=== PATIENT | female | born 1950 | race Caucasian/White ===

== ENCOUNTER 2017-03-25 06:00 | Inpatient (IN) ==
[2017-03-14 13:43] LABS: Basophils % 0.4 % (0.0-0.8); Eosinophils # 0.1 10*3/uL (0.0-0.87); Hematocrit 41.4 VOL% (35.7-47.0); Hemoglobin 13.8 GM/DL (12.0-16.0); Immature Granulocytes % 0.4 %; Immature Granulocytes Absolute 0.02 #; Lymphocytes % 19.5 % (21.3-54.2); Mean Corpuscular HGB Conc 33.3 GM/DL (32-36); Mean Corpuscular Hemoglobin 31 PG (27-34); Mean Corpuscular Volume 92.8 FL (87-102); Mean Platelet Volume 10.7 FL (9.6-12.0); Monocytes # 0.9 10*3/uL (0.11-0.8); Monocytes % 18.2 % (1.7-12.7); Neutrophils # 3.1 10*3/uL (1.4-7.4); Neutrophils % 59.5 % (38.7-73.9); Platelet Count 207 T/CUMM (130-400); Red Blood Count 4.46 MC/CUMM (3.8-5.5); Red Cell Distribution Width 12.7 % (9.3-17.3); White Blood Count 5.1 T/CUMM (4-12)
[2017-03-14 14:07] LABS: INR 0.9; PT Patient Result 9.6 SECS; Partial Thromboplastin Time 26.4 SECS (0-40)
[2017-03-14 14:08] LABS: Albumin 3.8 G/DL (3.4-5.0); Bilirubin,Total 0.4 MG/DL (0.2-1.0); Calcium 8.8 MG/DL (8.5-10.1); Osmolality,Calculated 277.7 MOS/KG (273-304); Total Protein 6.8 G/DL (6.4-8.3)
[2017-03-14 14:12] LABS: Apearance,Urine Slightly Hazy (Clear); Bacteria,Urine Occasional /HPF (Few); Bilirubin,Urine Negative (Negative); Blood, Urine Negative (Negative); Glucose,Urine (UA) Negative (Negative); Ketones,Urine Negative (Negative); Mucus,Urine Occasional /LPF (Occasional); Nitrite,Urine Negative (Negative); Protein,Urine Negative; RBC,Urine 1 /HPF (0-4); Squamous Epithelial Cell,Urine Occasional /HPF (0-10); Urine Color Yellow (Yellow); Urine Specific Gravity 1.014 (1.001-1.035); Urine Urobilinogen < 2.0 EU/DL (0.2-1.0); WBC,Urine <1 /HPF (0-6)
[2017-03-14 14:21] LABS: Band Neutrophils 1 % (0-10); Eosinophils 4 % (0-10); Lymphocytes 15 % (20-55); Platelet Estimate Normal; Segmented Neutrophils 70 % (50-85); Total Cells Counted 100
[~2017-03-25 06:00] MED LIST: VANCOMYCIN INJ 1,000 MG in SODIUM CHLORIDE 0.9% 250 ML IV ONE; ceFAZolin 1,000 MG in SYRINGE 1 EACH IV ONE
[2017-03-25] MEDS ORDERED: VANCOMYCIN 1,000 MG VIAL ONE (06:27)
[2017-03-25] MEDS ORDERED: ceFAZolin 1,000 MG VIAL ONE (06:28)
[2017-03-25] MEDS ORDERED: TRANEXAMIC ACID 1,000 MG/10 ML VIAL IV ONE (06:32)
[2017-03-25] MEDS ORDERED: ROPIVACAINE 0.5% 30 ML VIAL ONE (06:36)
[2017-03-25] MEDS ORDERED: BACITRACIN OINT 0.9 GM PACK TOP ONE (06:41)
[2017-03-25] MEDS ORDERED: BUPIVACAINE 0.5% 50 ML VIAL ONE (06:41)
[2017-03-25] MEDS ORDERED: BETAMETH SODIUM PHOS/ACETATE 30 MG/5 ML VIAL ONE (06:42)
[2017-03-25] MEDS: LACTATED RINGERS 1,000 ML IV SCH ×5 (06:49→17:59)
[2017-03-25] MEDS ORDERED: MORPHINE 2 MG/1 ML SYRINGE IV PRN ×2 (07:29)
[2017-03-25] MEDS ORDERED: ZALEPLON 5 MG CAPSULE PO PRN (07:29)
[2017-03-25] MEDS ORDERED: MAGNESIUM HYDROXIDE SUSP 30 ML UDCUP PO PRN (07:29)
[2017-03-25] MEDS ORDERED: oxyCODONE IR 5 MG TABLET PO PRN (07:29)
[2017-03-25] MEDS ORDERED: diphenhydrAMINE CAP 25 MG CAPSULE PO PRN (07:29)
[2017-03-25] MEDS ORDERED: ONDANSETRON 4 MG/2 ML VIAL IV PRN (07:29)
[2017-03-25] MEDS ORDERED: KETOROLAC 30 MG/1 ML VIAL IV SCH (07:30)
[2017-03-25] MEDS ORDERED: BIOTIN 800 MCG PO SCH (09:00)
[2017-03-25] MEDS ORDERED: fentaNYL 100 MCG/2 ML VIAL ONE (09:06)
[2017-03-25] MEDS ORDERED: PROPOFOL 200 MG/20 ML VIAL IV ONE (09:06)
[2017-03-25] MEDS ORDERED: LACTATED RINGERS 1,000 ML IV ONE (09:07)
[2017-03-25] MEDS ORDERED: MIDAZOLAM 2 MG/2 ML VIAL ONE (09:07)
[2017-03-25] MEDS ORDERED: ONDANSETRON 4 MG/2 ML VIAL ONE (09:07)
[2017-03-25] MEDS ORDERED: PROPOFOL 500 MG/50 ML BOTTLE IV ONE (09:07)
[2017-03-25] MEDS ORDERED: SODIUM CHLORIDE 0.9% 100 ML IV ONE (09:07)
[2017-03-25] MEDS: CALCIUM (CARBONATE)/VITAMIN D 600 MG-400 UNIT TABLET PO SCH ×2 (10:29→21:06)
[2017-03-25] MEDS: TRIAMTERENE/HCTZ 37.5-25 MG CAPSULE PO SCH (10:30)
[2017-03-25] MEDS: ATORVASTATIN 20 MG TABLET PO SCH (10:30)
[2017-03-25] MEDS: PANTOPRAZOLE 40 MG TABLET PO SCH (10:30)
[2017-03-25] MEDS: DOCUSATE SODIUM 100 MG CAPSULE PO SCH ×2 (10:30→21:06)
[2017-03-25] MEDS: FLUTICASONE 50 MCG NASAL SPRAY 16 GM BOTTLE BOTH NARES SCH ×2 (10:30→21:07)
[2017-03-25] MEDS: CETIRIZINE 10 MG TABLET PO SCH (10:30)
[2017-03-25] MEDS: MULTIVITAMIN (CENTRUM) TABLET PO SCH (10:30)
[2017-03-25] MEDS: CARVEDILOL 6.25 MG TABLET PO SCH ×2 (10:30→21:06)
[2017-03-25] MEDS: KETOROLAC 30 MG/1 ML VIAL IV SCH ×3 (11:17→23:25)
[2017-03-25] MEDS: ACETAMINOPHEN 500 MG TABLET PO SCH ×3 (11:17→23:25)
[2017-03-25] MEDS: ceFAZolin 1,000 MG in SYRINGE 1 EACH IV SCH ×2 (11:18→21:06)
[2017-03-25] MEDS: oxyCODONE IR 5 MG TABLET PO PRN ×3 (14:11→23:25)
[2017-03-26] MEDS: LACTATED RINGERS 1,000 ML IV SCH ×2 (00:22→04:31)
[2017-03-26] MEDS: FONDAPARINUX 2.5 MG/0.5 ML SYRINGE SUBCUT SCH (05:25)
[2017-03-26] MEDS: ACETAMINOPHEN 500 MG TABLET PO SCH (05:25)
[2017-03-26] MEDS: KETOROLAC 30 MG/1 ML VIAL IV SCH (05:25)
[2017-03-26 06:09] LABS: Basophils % 0.2 % (0.0-0.8); Hematocrit 33.2 VOL% (35.7-47.0); Hemoglobin 11.3 GM/DL (12.0-16.0); Immature Granulocytes % 0.6 %; Immature Granulocytes Absolute 0.08 #; Lymphocytes # 0.8 10*3/uL (1.4-4.0); Mean Corpuscular Hemoglobin 31 PG (27-34); Mean Corpuscular Volume 90.2 FL (87-102); Mean Platelet Volume 10.8 FL (9.6-12.0); Monocytes # 1.1 10*3/uL (0.11-0.8); Monocytes % 8.5 % (1.7-12.7); Neutrophils # 10.8 10*3/uL (1.4-7.4); Neutrophils % 84.7 % (38.7-73.9); Platelet Count 205 T/CUMM (130-400); Red Blood Count 3.68 MC/CUMM (3.8-5.5); White Blood Count 12.7 T/CUMM (4-12)
[2017-03-26 06:51] LABS: Calcium 9.3 MG/DL (8.5-10.1); Osmolality,Calculated 285.1 MOS/KG (273-304); Potassium 3.4 MMOL/L (3.5-5.1)
[2017-03-26] MEDS: TRIAMTERENE/HCTZ 37.5-25 MG CAPSULE PO SCH (08:54)
[2017-03-26] MEDS: CALCIUM (CARBONATE)/VITAMIN D 600 MG-400 UNIT TABLET PO SCH ×2 (08:55→21:41)
[2017-03-26] MEDS: MULTIVITAMIN (CENTRUM) TABLET PO SCH (08:55)
[2017-03-26] MEDS: DOCUSATE SODIUM 100 MG CAPSULE PO SCH ×2 (08:55→21:41)
[2017-03-26] MEDS: ATORVASTATIN 20 MG TABLET PO SCH (08:55)
[2017-03-26] MEDS: PANTOPRAZOLE 40 MG TABLET PO SCH (08:55)
[2017-03-26] MEDS: CARVEDILOL 6.25 MG TABLET PO SCH ×2 (08:55→21:41)
[2017-03-26] MEDS: CETIRIZINE 10 MG TABLET PO SCH (08:55)
[2017-03-26] MEDS: FLUTICASONE 50 MCG NASAL SPRAY 16 GM BOTTLE BOTH NARES SCH ×2 (08:56→21:42)
[2017-03-26] MEDS: CELECOXIB 200 MG CAPSULE PO SCH (13:10)
[2017-03-27 05:33] LABS: Basophils % 0.2 % (0.0-0.8); Eosinophils % 0.1 % (0.00-10.9); Hematocrit 32.1 VOL% (35.7-47.0); Hemoglobin 10.9 GM/DL (12.0-16.0); Immature Granulocytes % 0.7 %; Immature Granulocytes Absolute 0.09 #; Lymphocytes # 1.2 10*3/uL (1.4-4.0); Lymphocytes % 9.8 % (21.3-54.2); Mean Corpuscular Hemoglobin 31 PG (27-34); Mean Corpuscular Volume 92.5 FL (87-102); Mean Platelet Volume 11.2 FL (9.6-12.0); Monocytes # 1.2 10*3/uL (0.11-0.8); Monocytes % 9.9 % (1.7-12.7); Neutrophils # 9.7 10*3/uL (1.4-7.4); Neutrophils % 79.3 % (38.7-73.9); Platelet Count 202 T/CUMM (130-400); Red Blood Count 3.47 MC/CUMM (3.8-5.5); Red Cell Distribution Width 12.7 % (9.3-17.3); White Blood Count 12.2 T/CUMM (4-12)
[2017-03-27] MEDS: FONDAPARINUX 2.5 MG/0.5 ML SYRINGE SUBCUT SCH (06:29)
[2017-03-27] MEDS: PANTOPRAZOLE 40 MG TABLET PO SCH (09:00)
[2017-03-27] MEDS: MULTIVITAMIN (CENTRUM) TABLET PO SCH (09:00)
[2017-03-27] MEDS: DOCUSATE SODIUM 100 MG CAPSULE PO SCH (09:00)
[2017-03-27] MEDS: CETIRIZINE 10 MG TABLET PO SCH (09:00)
[2017-03-27] MEDS: TRIAMTERENE/HCTZ 37.5-25 MG CAPSULE PO SCH (09:00)
[2017-03-27] MEDS: CARVEDILOL 6.25 MG TABLET PO SCH (09:00)
[2017-03-27] MEDS: CALCIUM (CARBONATE)/VITAMIN D 600 MG-400 UNIT TABLET PO SCH (09:00)
[2017-03-27] MEDS: CELECOXIB 200 MG CAPSULE PO SCH (09:01)
[2017-03-27] MEDS: ATORVASTATIN 20 MG TABLET PO SCH (09:01)
[2017-03-27] MEDS: FLUTICASONE 50 MCG NASAL SPRAY 16 GM BOTTLE BOTH NARES SCH (09:04)
[2017-03-27 11:26] VITALS: BP 113/72
== END 2017-03-27 15:55 | disposition home health service (06) | DRG 470 ==
LOC: N.SDSINP 06:00 → N.3E 10:05
PROVIDERS: ADMIT Orthopaedic Surgery; ATTEND Orthopaedic Surgery